=== PATIENT | female | born 1985 | race Caucasian/White ===

== ENCOUNTER → 2018-03-17 | Day surgery (SDC) | payer OTHER ==
[2018-03-15 10:49] VITALS: BMI 25.7
[~2018-03-17] MED LIST: LACTATED RINGERS 1,000 ML IV SCH; LIDOCAINE 1% 20 ML VIAL (10MG/ML) FOR IV START INTRADERMA ONE; PROPOFOL 10 MG/ML 20 ML VIAL IV ONE
[2018-03-17 13:06] VITALS: RESP 16; TEMP 98.9
--- NOTE | 2018-03-17 13:23 | P.PCN ---
Date of Procedure: 03/17/18 Procedure(s) Performed: BRIEF HISTORY: Patient is a 33-year-old pleasant female, scheduled for an elective colonoscopy as a part of screening for colonic neoplasia. She has strong family history of colon cancer diagnosed in her paternal grandfather at age 35, paternal grandmother at age 52 and paternal uncle at age 50. PROCEDURE PERFORMED: Colonoscopy with biopsy. PREOPERATIVE DIAGNOSIS: Screening for colon cancer/family history of colon cancer. IV sedation per Anesthesia. PROCEDURE: After informed consent was obtained, the patient, was brought into the endoscopy unit. IV sedation was administered by Anesthesia under continuous monitoring. Digital rectal examination was normal. Initially the Olympus CF- 160 flexible video colonoscope was then inserted in the rectum, gradually advanced into the cecum without any difficulty. Careful examination was performed as the scope was gradually being withdrawn. Ileocecal valve and the appendiceal orifice were visualized and appeared normal. Prep was excellent. Mucosa of the cecum, ascending colon, transverse colon, descending colon, sigmoid colon, and rectum appeared normal. In the distal rectum there was a 3- 4 mm small sessile polyp removed by cold biopsy. Retroflexion was performed in the rectum and no lesions were seen. The patient tolerated the procedure well. IMPRESSION: 4 mm sessile distal rectal polyp status post removal by cold biopsy Rest of the colon appeared normal RECOMMENDATIONS: Findings of this examination were discussed with the patient as well as a family. She was advised to follow with the biopsy results. She can have a repeat severance colonoscopy in 5 years because of the strong family history of colon cancer.
[2018-03-17 13:47] VITALS: BP 127/87; PULSE 105
== END ==
LOC: ORWHC2ENDO 12:31
PROVIDERS: ATTEND Internal Medicine Gastroenterology
DX: Z12.11 Encounter for screening for malignant neoplasm of colon (principal); D12.8 Benign neoplasm of rectum; Z80.0 Family history of malignant neoplasm of digestive organs; I10 Essential (primary) hypertension; Z79.3 Long term (current) use of hormonal contraceptives; Z79.899 Other long term (current) drug therapy; Z88.0 Allergy status to penicillin; Z91.041 Radiographic dye allergy status
CPT/HCPCS: 81025; 88305; 45380; J2704

== ENCOUNTER 2018-03-31 21:19 | Emergency (ER) | payer OTHER ==
[2018-03-31] MEDS ORDERED: diphenhydrAMINE 50 MG/ML 1 ML VIAL IVP STA (21:39)
[2018-03-31] MEDS ORDERED: KETOROLAC 30 MG/ML 1 ML VIAL IVP STA (21:39)
[2018-03-31] MEDS ORDERED: SODIUM CHLORIDE 0.9% 1,000 ML IV STA (21:39)
[2018-03-31] MEDS ORDERED: METOCLOPRAMIDE 5 MG/ML 2 ML VIAL IVP STA (21:39)
[2018-03-31] MEDS ORDERED: MORPHINE SULFATE 2 MG/ML SYRINGE IVP STA (21:55)
--- NOTE | 2018-03-31 22:52 | CT ---
EXAMINATION TYPE: CT brain wo con DATE OF EXAM: 03/31/2018 COMPARISON: None HISTORY: Migraine. CT DLP: 1102.4 mGycm. Automated Exposure Control for Dose Reduction was Utilized. TECHNIQUE: CT scan of the head is performed without contrast. FINDINGS: The ventricles of normal size. There is no mass effect nor midline shift. There is no sign of intracranial hemorrhage. The calvarium is intact. IMPRESSION: Negative CT scan of the brain.
--- NOTE | 2018-03-31 23:01 | ED ---
Headache HPI - General Chief Complaint: Headache Stated Complaint: Migraine Time Seen by Provider: 03/31/18 21:39 Mode of arrival: ambulatory Limitations: no limitations - History of Present Illness Initial Comments: 33-year-old female patient presents to the emergency department for evaluation of headache. Patient states the pain encompasses her entire head. States that the first time she experiences headache was 2 weeks ago after having a colonoscopy. States that the headache lasted for the 3 days and then improved. States that 2 days ago the headache started again. States that it does have a gradual onset and become severe. States she does get nauseous with this. She reports sensitivity to light and sound. She denies any blurred or double vision. Denies any numbness, tingling, or weakness to her extremities. She denies any head injury. Denies any history of headache or migraines. Patient denies any recent rash, fever, chills, shortness breath, chest pain, abdominal pain, vomiting, diarrhea, constipation, back pain, dizziness, hematuria, dysuria , urinary urgency, urinary frequency, or any other complaints. - Related Data Home Medications Medication Instructions Recorded Confirmed Dextroamphetamine/Amphetamine 20 mg PO DAILY 03/15/18 03/31/18 [Adderall] Levonorgestrel [Mirena] 03/15/18 Losartan Potassium [Cozaar] 25 mg PO DAILY 03/15/18 03/31/18 Previous Rx's Medication Instructions Recorded Butalb/APAP/Caff 50-325-40Mg 1 tab PO Q4H PRN #18 tablet 03/31/18 [Fioricet 50-325-40] Allergies Allergy/AdvReac Type Severity Reaction Status Date / Time amoxicillin Allergy Rash/Hives Verified 03/31/18 22:26 Iodine and Iodide Containing Allergy Rash/Hives Verified 03/31/18 22:26 Produc Review of Systems ROS Statement: Those systems with pertinent positive or pertinent negative responses have been documented in the HPI. ROS Other: All systems not noted in ROS Statement are negative. Past Medical History Past Medical History: Hypertension Additional Past Medical History / Comment(s): FAMILY HX COLON CA History of Any Multi-Drug Resistant Organisms: None Reported Past Surgical History: Section Additional Past Surgical History / Comment(s): RT BREAST SPOT REMOVED-BENIGN Past Anesthesia/Blood Transfusion Reactions: No Reported Reaction Past Psychological History: ADD/ADHD Smoking Status: Current every day smoker Past Alcohol Use History: Occasional Past Drug Use History: None Reported - Past Family History Mother Family Medical History: No Reported History General Exam Limitations: no limitations General appearance: alert, in no apparent distress, other (Social well-developed , well-nourished adult female patient in mild distress related to pain. Vital signs upon presentation are temperature 97.9F, pulse 120, respirations 20, blood pressure 135/86, pulse ox 99% on room air.) Eye exam: Present: normal appearance, PERRL, EOMI. Absent: scleral icterus, conjunctival injection, nystagmus, periorbital swelling ENT exam: Present: normal exam, normal oropharynx, mucous membranes moist Neck exam: Present: normal inspection. Absent: tenderness, meningismus, lymphadenopathy Respiratory exam: Present: normal lung sounds bilaterally. Absent: respiratory distress, wheezes, rales, rhonchi, stridor Cardiovascular Exam: Present: normal rhythm, tachycardia, normal heart sounds. Absent: systolic murmur, diastolic murmur, rubs, gallop, clicks GI/Abdominal exam: Present: soft, normal bowel sounds. Absent: distended, tenderness, guarding, rebound, rigid Neurological exam: Present: alert, oriented X3, CN II-XII intact Expanded Cranial nerves: EOM's Intact: Normal, Nystagmus: Normal Motor strength exam: RUE: 5, LUE: 5, RLE: 5, LLE: 5 Psychiatric exam: Present: normal affect, normal mood Skin exam: Present: warm, dry, intact, normal color. Absent: rash Course Vital Signs 03/31/18 03/31/18 21:34 23:48 Temperature 97.9 F 98.0 F Pulse Rate 120 H 98 Respiratory 20 16 Rate Blood Pressure 135/86 104/62 O2 Sat by Pulse 99 97 Oximetry Medical Decision Making - Medical Decision Making 33-year-old female patient presents to the emergency department today for evaluation of headache. Physical examination is relatively unremarkable. Patient is neurologically intact with no focal deficits. CT brain was performed and showed no acute intracranial abnormalities. Patient was given IV medications and IV fluids here in the emergency department. Upon reevaluation patient is feeling better. She'll be discharged home to follow-up with neurologist for further evaluation. She'll be given prescription for Fioricet. Return parameters were discussed in detail. She verbalizes understanding and agrees with this plan. - Radiology Data Radiology results: report reviewed, image reviewed CT brain without contrast was obtained. Report was reviewed in its entirety. Impression by Dr. Brown shows ventricles are of normal size. There is no mass effect or midline shift. So sign of intracranial hemorrhage. The calvarium is intact. Impression by Dr. Brown shows negative computed tomography scan of the brain. Disposition Clinical Impression: Migraine headache Disposition: HOME SELF-CARE Condition: Good Instructions: Migraine Headache (ED) Additional Instructions: Increase fluids. Use medication as directed. Follow up with neurologist for further evaluation and possible migraine headache. Return immediately for any new, worsening, or concerning symptoms. Prescriptions: Butalb/APAP/Caff 50-325-40Mg [Fioricet 50-325-40] 1 tab PO Q4H PRN #18 tablet PRN Reason: Headache Is patient prescribed a controlled substance at d/c from ED?: No Referrals: Terrence Momin MD [Primary Care Provider] - 1-2 days Comfort Veras MD [STAFF PHYSICIAN] - 1-2 days Time of Disposition: 23:29
[2018-03-31 23:53] VITALS: BP 104/62; PULSE 98; RESP 16; TEMP 98
== END 2018-03-31 23:54 | disposition home or self-care (01) ==
LOC: EC 21:19
DX: G43.909 Migraine, unspecified, not intractable, without status migrainosus (principal); R00.0 Tachycardia, unspecified; I10 Essential (primary) hypertension; F90.9 Attention-deficit hyperactivity disorder, unspecified type; F17.200 Nicotine dependence, unspecified, uncomplicated; Z79.899 Other long term (current) drug therapy; Z88.0 Allergy status to penicillin; Z91.048 Other nonmedicinal substance allergy status
CPT/HCPCS: 70450; 99283; 96374; 96375 ×2; 96361; J1200; J2765; J2270

== ENCOUNTER → 2018-11-02 | Outpatient (CLI) | payer OTHER ==
[2018-11-02 09:25] VITALS: BP 142/98; PULSE 124; RESP 18; TEMP 98.6; BMI 24.9
--- NOTE | 2018-11-02 10:11 | P.GSHP ---
History of Present Illness H&P Date: 11/02/18 Chief Complaint: lump in right breast The patient is a 33-year-old white female who noted a mass at in her right breast approximately 6 weeks ago. She states that initially was painful and the pain has subsided. She is not certain as to when her periods would be a she has a Mirena device implanted and does not have periods and has not had a period for 10 years. The patient has a strong family history of breast cancer with a paternal aunt having had bilateral mastectomies recently. She had recent radiographic evaluation at [facility] and was told that everything was okay. The patient continues to feel nodularity in the upper aspect of the right breast. Patient had bilateral mammogram and ultrasound at [facility] in September 2018. These films were reviewed with our radiologist here and no definite lesion was seen in either breast on either mammogram or ultrasound. January Risk analysis was run: 5 year breast cancer risk 0.8% compared with 0.3% for average 35-year-old Lifetime risk 16.4% compared was 12.6% for average 35-year-old Family history: 1. Maternal grandmother: breast cancer 2. 2 paternal aunts: Breast cancer 3. Maternal great-grandmother: Breast cancer 4. Paternal aunt: Colon cancer 5. Paternal grandfather: Colon cancer Hormonal History: menarche: 8 , breast fed: no, first at 19 no periods for 10 years, secondary to Mirena implanted BCP: 5 years hormones: none Surgical history: 1. Right breast lump removed 2. Medical History: 1. HTN Social history: Smoke: One pack per day for 15 years Alcohol: Weekends Drugs: Negative - Constitutional Constitutional: Denies chills, Denies fever - EENT Eyes: denies blurred vision, denies pain Ears: deny: decreased hearing, tinnitus Ears, nose, mouth and throat: Reports headache - Breasts Breasts: bilateral: as per HPI - Cardiovascular Cardiovascular: Reports high blood pressure - Respiratory Comment: smoker - Gastrointestinal Gastrointestinal: Denies abdominal pain, Denies diarrhea, Denies nausea, Denies vomiting - Genitourinary (Female) Genitourinary: Denies dysuria, Denies hematuria - Menstruation Menstruation: Reports as per HPI - Musculoskeletal Musculoskeletal: Denies myalgias - Integumentary Integumentary: Denies pruritus, Denies rash - Neurological Neurological: Denies numbness, Denies weakness - Endocrine Endocrine: Denies fatigue, Denies weight change - Hematologic/Lymphatic Comment: none - Allergic/Immunologic Allergic/Immunologic: Reports seasonal allergies Past Medical History Past Medical History: Hypertension Additional Past Medical History / Comment(s): FAMILY HX COLON CA History of Any Multi-Drug Resistant Organisms: None Reported Past Surgical History: Section Additional Past Surgical History / Comment(s): RT BREAST SPOT REMOVED-BENIGN Past Anesthesia/Blood Transfusion Reactions: No Reported Reaction Past Psychological History: ADD/ADHD Smoking Status: Current every day smoker Past Alcohol Use History: Occasional Additional Past Alcohol Use History / Comment(s): SMOKES 1 PPD FOR PAST 10 YEARS Past Drug Use History: None Reported - Past Family History Mother Family Medical History: No Reported History Medications and Allergies Home Medications Medication Instructions Recorded Confirmed Type Dextroamphetamine/Amphetamine 20 mg PO DAILY 03/15/18 11/02/18 History [Adderall] Levonorgestrel [Mirena] 1 insert VAGINAL DAILY 03/15/18 11/02/18 History Losartan Potassium [Cozaar] 25 mg PO DAILY 03/15/18 11/02/18 History Allergies Allergy/AdvReac Type Severity Reaction Status Date / Time amoxicillin Allergy Rash/Hives Verified 11/02/18 09:25 Iodine and Iodide Containing Allergy Rash/Hives Verified 11/02/18 09:25 Produc Surgical - Exam Vital Signs Temp Pulse Resp BP Pulse Ox 98.6 F 124 H 18 142/98 99 11/02/18 09:22 11/02/18 09:22 11/02/18 09:22 11/02/18 09:22 11/02/18 09:22 BMI 24.9 - General well developed, well nourished, no distress - Eyes normal ocular movement - ENT no hearing loss, no congestion - Neck no masses, trachea midline - Respiratory normal respiratory effort, clear to auscultation - Cardiovascular Rhythm: regular Heart Sounds: normal: S1, S2 - Abdomen Abdomen: soft, non tender, no guarding, no rigid, no rebound - Integumentary normal turgor, tattoos - Neurologic no disoriented, no combative - Musculoskeletal normal gait, normal posture - Psychiatric oriented to time, oriented to person, oriented to place, speech is normal, memory intact Breast exam: Right breast: Multi-positional exam area of increased nodularity at 12:00, fibrocystic changes May axilla: No adenopathy of concern Left breast: Multi-positional exam fibrocystic changes no dominant masses or notches of concern Left axilla: No adenopathy of concern Results Mammogram and ultrasound results reviewed with radiologist Assessment and Plan Assessment: Impression: 1. Hypertension 2. Family history of cancer 3. Family history of breast cancer 4. Fibrocystic breast changes 5. Palpable mass right breast at 12:00 6. Mammogram and ultrasound did not show any specific lesion in the breast 7. Increased risk of breast cancer noted on January model Plan: 1. I would recommend the patient had bilateral breast MRI secondary to dense breast and probable lesion in the right breast as well as strong family history of cancer 2. FNA of the area of concern in the right breast and surgical resection of the area following the FNA 3. Appointment with genetic counselor CC: Dr. Terrence Momin
--- NOTE | 2018-11-02 10:33 | P.PCN ---
Date of Procedure: 11/02/18 Preoperative Diagnosis: Nodularity 12:00 region of the right breast Postoperative Diagnosis: Same Procedure(s) Performed: Fine-needle aspiration of area of nodularity right breast Surgeon: Reva Mace Pathology: other (Nodule near the right breast at 12:00, breast tissue) Condition: stable Disposition: same day Indications for Procedure: Nodularity right breast at 12:00 Description of Procedure: The patient is a 33-year-old white female with an area of increased nodularity in the right breast at 12:00. This was not seen radiographically but is palpable. After discussion the patient wished to proceed with a fine-needle aspiration of the area. The area of the skin was prepped using alcohol. A 22- gauge needle on a 10 mL syringe was inserted into the area of concern. Using vacuum sessile action on the syringe multiple passes were obtained. The specimen was retrieved and process and sent to pathology. Patient tolerated the procedure in stable condition. She will follow-up in one week.
== END | disposition home or self-care (01) ==
LOC: WWCWWP 08:46
PROVIDERS: ATTEND Surgery
DX: N64.9 Disorder of breast, unspecified (principal)
CPT/HCPCS: 88173

== ENCOUNTER → 2018-11-13 | Outpatient (CLI) | payer OTHER ==
[2018-11-13 08:21] VITALS: BP 157/108; PULSE 120; RESP 18; TEMP 98.2; BMI 24.9
--- NOTE | 2018-11-13 08:41 | P.PN ---
Subjective Progress Note Date: 11/13/18 Leeanne is a 33-year-old white female who is status post FNA of an area of palpable change in the right breast at 12 o'clock position. Pathology reveals minimally cellular specimen consisting of mainly blood with rare sheets of clusters of bland ductal epithelial cells. This is overall nondiagnostic, fea tures suggest possibility of a fibroadenoma however the specimen is inadequate due to low cellularity to completely call this. The patient is scheduled for an MRI of both breasts next week. She has a strong family history of cancer and is going to see a genetic counselor in the near future. The patient has no complaints related to the FNA. She did develop some bruising at the site but this is resolving. Objective - Vital Signs Vital signs: Vital Signs Temp 98.2 F 11/13/18 08:16 Pulse 120 H 11/13/18 08:16 Resp 18 11/13/18 08:16 BP 157/108 11/13/18 08:16 Pulse Ox 99 11/13/18 08:16 Intake & Output 11/12/18 11/13/18 11/13/18 18:59 06:59 18:59 Weight 65.771 kg - Constitutional General appearance: Present: average body habitus - EENT Eyes: Present: EOMI ENT: Present: hearing grossly normal - Neck Neck: Present: normal ROM - Respiratory Respiratory: bilateral: CTA - Cardiovascular Rhythm: regular Heart sounds: normal: S1, S2 - Integumentary Integumentary Comment(s): Examination of the right breast reveals some ecchymosis at the site of the FNA No evidence of hematoma Persistent palpable abnormality at near the 12 o'clock position of the right breast no evidence of any infection Integumentary: Present: normal turgor Assessment and Plan Assessment: Impression: 1. Hypertension 2. Family history of cancer 3. Family history of breast cancer 4. Fibrocystic breast changes 5. Palpable mass right breast at 12:00/FNA benign 6. Mammogram and ultrasound did not show any specific lesions in the breast 7. Increased risk for breast cancer noted on January model Plan: 1. Bilateral breast MRI to be performed next week we will call the patient's with the results of this 2. Patient is considering genetic counseling 3. Patient wishes to have the palpable area of concern removed in the right breast The risk and benefits of the procedure were discussed with the patient this will be scheduled in the near future. Prior to this we will see results of the MRI. Cc: Dr. Terrence Momin
== END | disposition home or self-care (01) ==
LOC: WWCWWP 08:11
PROVIDERS: ATTEND Surgery
DX: Z53.9 Procedure and treatment not carried out, unspecified reason (principal)

== ENCOUNTER → 2018-11-15 | Outpatient (CLI) | payer OTHER ==
--- NOTE | 2018-11-16 08:40 | BMR ---
EXAMINATION TYPE: MR breast BILAT wo/w con DATE OF EXAM: 11/15/2018 COMPARISON: Outside bilateral breast mammogram September 22, 2018 and outside right breast targeted ultras ound same date. HISTORY: Unspecified lump in rt breast, hx of cyst removed near nipple CONTRAST: Multiplanar, multisequence images of the breasts were acquired utilizing 7 mL intravenous Gadavist ga dolinium contrast. TECHNIQUE: A series of fat and water weighted images in the long and short axis views of both breasts are obtained in conjunction with dynamic contrast MRI with subtraction technique. Three-dimensional and additional postprocessing imaging is created on independent workstation and reviewed during offi cial interpretation of this study. FINDINGS: Fairly extremely dense fibroglandular tissue throughout both breasts is redemonstrated. T2- weighted images show several simple appearing thin-walled small cysts bilaterally. There is some duct al ectasia bilaterally subareolar region. Dynamic postcontrast images show fairly moderate to marked symmetric background enhancement making evaluation suboptimal. Review of patient's screening she does not reveal patient's current last normal menstrual period so it is uncertain if the exam was perform ed in the appropriate time interval making evaluation suboptimal. Areas of glandular enhancement show benign gradual uptake on dynamic postcontrast images bilaterally with slightly more prominent area u pper-outer aspect right breast corresponding to level of palpable abnormality, this is fairly diffuse in appearance versus focal was slightly more prominent glandular tissue noted at this level on mammo gram versus other quadrant. No suspicious skin thickening is seen bilaterally. No pathologic enhancement or suspicious enhancing masses are clearly present. Chest wall is intact bilaterally. No suspicious axillary or internal mamm iain adenopathy. IMPRESSION: No convincing MRI evidence for invasive malignancy in either breast. Suboptimal study not ed. Hormonal changes suspected. BI-RADS 2 benign findings Recommendation: Manage palpable on clinical basis. If symptoms persist consider repeat targeted ultra sound.
== END | disposition home or self-care (01) ==
LOC: RADMRIMAIN 19:09
PROVIDERS: ATTEND Surgery
DX: N63.0 Unspecified lump in unspecified breast (principal)
CPT/HCPCS: 77049; C8937; A9585

== ENCOUNTER → 2018-12-28 | Outpatient (CLI) | payer OTHER ==
[2018-12-28 09:30] VITALS: BP 143/98; PULSE 115; RESP 16; TEMP 98.2; BMI 25.7
--- NOTE | 2018-12-28 10:11 | P.PN ---
Subjective Progress Note Date: 12/28/18 The patient is a 33-year-old white female who noted a mass at in her right breast approximately 8 weeks ago. She states that initially was painful and the pain has subsided. She is not certain as to when her periods would be a she has a Mirena device implanted and does not have periods and has not had a period for 10 years. The patient has a strong family history of breast cancer with a paternal aunt having had bilateral mastectomies recently. She had recent radiographic evaluation at [facility] and was told that everything was okay. The patient continues to feel nodularity in the upper aspect of the right breast. Patient had bilateral mammogram and ultrasound at [facility] in September 2018. These films were reviewed with our radiologist here and no definite lesion was seen in either breast on either mammogram or ultrasound. Patient had a bilateral MRI performed on [id number] this was a suboptimal study but no convincing evidence of malignancy in either breast was identified. Additionally she had an FNA performed of the area of nodularity and [id number]. This was benign clusters of plan ductal cells. Overall this was nondiagnostic however features suggestive of fibroadenoma. Patient states despite has not decreased in size. It is painful to touch. January Risk analysis was run: 5 year breast cancer risk 0.8% compared with 0.3% for average 35-year-old Lifetime risk 16.4% compared was 12.6% for average 35-year-old Family history: 1. Maternal grandmother: breast cancer 2. 2 paternal aunts: Breast cancer 3. Maternal great-grandmother: Breast cancer 4. Paternal aunt: Colon cancer 5. Paternal grandfather: Colon cancer Hormonal History: menarche: 8 , breast fed: no, first at 19 no periods for 10 years, secondary to Mirena implanted BCP: 5 years hormones: none Surgical history: 1. Right breast lump removed 2. Medical History: 1. HTN Social history: Smoke: One pack per day for 15 years Alcohol: Weekends Drugs: Negative - Constitutional Constitutional: Denies chills, Denies fever - EENT Eyes: denies blurred vision, denies pain Ears: deny: decreased hearing, tinnitus Ears, nose, mouth and throat: Reports headache - Breasts Breasts: bilateral: as per HPI - Cardiovascular Cardiovascular: Reports high blood pressure - Respiratory Comment: smoker - Gastrointestinal Gastrointestinal: Denies abdominal pain, Denies diarrhea, Denies nausea, Denies vomiting - Genitourinary (Female) Genitourinary: Denies dysuria, Denies hematuria - Menstruation Menstruation: Reports as per HPI - Musculoskeletal Musculoskeletal: Denies myalgias - Integumentary Integumentary: Denies pruritus, Denies rash - Neurological Neurological: Denies numbness, Denies weakness - Endocrine Endocrine: Denies fatigue, Denies weight change - Hematologic/Lymphatic Comment: none - Allergic/Immunologic Allergic/Immunologic: Reports seasonal allergies Past Medical History Past Medical History: Hypertension Additional Past Medical History / Comment(s): FAMILY HX COLON CA History of Any Multi-Drug Resistant Organisms: None Reported Past Surgical History: Section Additional Past Surgical History / Comment(s): RT BREAST SPOT REMOVED-BENIGN Past Anesthesia/Blood Transfusion Reactions: No Reported Reaction Past Psychological History: ADD/ADHD Smoking Status: Current every day smoker Past Alcohol Use History: Occasional Additional Past Alcohol Use History / Comment(s): SMOKES 1 PPD FOR PAST 10 YEARS Past Drug Use History: None Reported Objective - Vital Signs Vital signs: Vital Signs Temp 98.2 F 12/28/18 09:27 Pulse 115 H 12/28/18 09:27 Resp 16 12/28/18 09:27 BP 143/98 12/28/18 09:27 Pulse Ox 100 12/28/18 09:27 Intake & Output 12/27/18 12/28/18 12/28/18 18:59 06:59 18:59 Weight 68.039 kg - Exam BMI 25.7 - Constitutional General appearance: Present: average body habitus - EENT Eyes: Present: EOMI ENT: Present: hearing grossly normal - Neck Neck: Present: normal ROM - Respiratory Respiratory: bilateral: CTA - Cardiovascular Rhythm: regular Heart sounds: normal: S1, S2 - Gastrointestinal General gastrointestinal: Present: soft - Integumentary Integumentary: Present: normal turgor - Musculoskeletal Musculoskeletal: Present: gait normal - Psychiatric Psychiatric: Present: A&O x's 3, appropriate affect, intact judgment & insight - Additional findings Additional findings: Breast examination: Right breast: Multiple positional exam increased nodularity 12:00 otherwise no dominant masses or nodules of concern, fibrocystic changes Axilla: No adenopathy of concern Left breast: Multiple positional exam fibrocystic changes Left axilla: No adenopathy of concern Breasts size 34 D grade 2 ptosis Assessment and Plan Assessment: Impression: 1. Probable nodule right breast FNA nondiagnostic 2. Family history of breast cancer 3. Hypertension 4. Family history of cancer 5. Mammogram and ultrasound did not show any specific lesions in the breast medicated MRI 5. Increased risk for breast cancer noted on January model Plan: 1. Patient is scheduled to meet with genetic counselor she wishes to have the surgery done prior to any results from genetic counseling and she states that anything that shows she would contemplate for probably a year prior to any intervention 2. Excisional biopsy of palpable abnormality right breast most likely via a crescent mastopexy patient understands that her breasts will be asymmetric after this procedure and she may opt for bilateral symmetry procedure in the future 3. Medical management of medical conditions CC: DR. Sendy Momin
== END | disposition home or self-care (01) ==
LOC: WWCWWP 09:20
PROVIDERS: ATTEND Surgery
DX: Z53.9 Procedure and treatment not carried out, unspecified reason (principal)

== ENCOUNTER 2019-01-02 07:20 | Day surgery (SDC) | payer OTHER ==
[2018-12-27 15:26] VITALS: BMI 25.2
[~2019-01-02 07:20] MED LIST changes: +DEXAMETHASONE SOD PHOSPHATE 10 MG/ML 1 ML VIAL IV ONE; +HEPARIN SODIUM,PORCINE 5,000 UNIT/ML 1 ML VIAL SQ ONE; -LIDOCAINE 1% 20 ML VIAL (10MG/ML) FOR IV START INTRADERMA ONE; +MIDAZOLAM 2 MG/2 ML VIAL IV PRN; +ONDANSETRON 4 MG/2 ML VIAL IVP ONE; -PROPOFOL 10 MG/ML 20 ML VIAL IV ONE; +SCOPOLAMINE 1.5MG/72HR PATCH TRANSDERM ONE
[2019-01-02] MEDS ORDERED: HYDROmorphone (PF) 1 MG/ML ONE (08:16)
[2019-01-02] MEDS ORDERED: LIDOCAINE 1% INJ 10MG/ML (20 ML MDV) ONE (08:16)
[2019-01-02] MEDS ORDERED: PROPOFOL 10 MG/ML 20 ML VIAL IV ONE (08:16)
[2019-01-02] MEDS ORDERED: fentaNYL (PF) 50 MCG/ML 2 ML AMP ONE (08:16)
[2019-01-02] MEDS ORDERED: SUCCINYLCHOLINE CHLORIDE 100 MG/5 ML SYR IV ONE (08:16)
[2019-01-02] MEDS ORDERED: MIDAZOLAM 2 MG/2 ML VIAL ONE (08:16)
[2019-01-02] MEDS ORDERED: HEPARIN SODIUM,PORCINE 5,000 UNIT/ML 1 ML VIAL SQ ONE (08:28)
[2019-01-02] MEDS ORDERED: LIDOCAINE (PF) 10 MG/ML 2 ML VIAL SQ ONE ×2 (08:38)
--- NOTE | 2019-01-02 09:40 | P.OP ---
Date of Procedure: 01/02/19 Preoperative Diagnosis: Palpable abnormality right breast, FNA performed nondiagnostic suggestive of fibroadenoma Postoperative Diagnosis: Same Procedure(s) Performed: Right breast excisional biopsy, tissue transfer with onco-plastic closure Anesthesia: CHRISTIAN Surgeon: Reva Mace Estimated Blood Loss (ml): 5 IV fluids (ml): 700 Pathology: other (Right breast tissue) Condition: stable Disposition: same day Indications for Procedure: The patient is a 34-year-old white female who presents with a very strong family history of breast cancer including a palpable mass in her right breast. An FNA was performed which was nondiagnostic. The patient wished excision as this was symptomatic for her. Operative Findings: Dense breast tissue Description of Procedure: The patient was taken to the operating room and following induction of anesthesia the right breast was prepped and draped in a sterile fashion. A crescent mastopexy was performed. The superior portion of the incision was approximately 1 cm from the area of the aerola.. A periareolar incision was made which encompassed prior periareolar incision. Dissection between the skin and the breast tissue was performed in the subcutaneous fatty tissue proximal to the area of the palpable abnormality. A wedge resection which included the palpable abnormality was performed. The specimen was 7 cm long and 6 cm wide. Following this the pillars on each side laterally were mobilized. Mobilization was approximately 8 cm long by 4 cm wide and this was performed along the area of the pectoralis muscle as well as in the tissue plane between the skin and the breast tissue in the subcutaneous tissue. Likewise the lateral tissue was dissected again 8 cm long by 4 cm wide width was dissected in both the pectoralis major muscle area as well as the tissue between the skin and the breast. The total tissue mobilized was approximately 64 cm. Titanium clips were used to kirsten the initial cavity. The wound was well irrigated. The 2 pillars of tissue were brought together and secured in place using a Vicryl suture. After we were assured that hemostasis was attained the periareolar incision was closed using a 4-0 Vicryl suture followed by a 4-0 Ethibond. 10 mL of 1% lidocaine was used to anesthetize the area. The patient tolerated the procedure in stable condition. All instrument and sponge counts were correct at the end of the case.
--- NOTE | 2019-01-02 09:43 | P.DS ---
Providers Attending physician: Reva Mace Primary care physician: Terrence Momin Plan - Discharge Summary Discharge Rx Participant: Yes New Discharge Prescriptions: No Action Dextroamphetamine/Amphetamine [Adderall] 20 mg PO QAM Levonorgestrel [Mirena] 1 insert VAGINAL ONCE Losartan-Hctz 50-12.5 mg [Hyzaar 50-12.5] 1 tab PO QAM Discharge Medication List Dextroamphetamine/Amphetamine [Adderall] 20 mg PO QAM 03/15/18 [History] Levonorgestrel [Mirena] 1 insert VAGINAL ONCE 03/15/18 [History] Losartan-Hctz 50-12.5 mg [Hyzaar 50-12.5] 1 tab PO QAM 12/27/18 [History] Follow up Appointment(s)/Referral(s): Reva Mace MD [STAFF PHYSICIAN] - 1 Week Activity/Diet/Wound Care/Special Instructions: Do not drive today, do not drive if taking narcotic pain medication Wear bra at all times Patient may shower after 48 hours Discharge Disposition: HOME SELF-CARE
[2019-01-02 09:56] VITALS: TEMP 97.2
[2019-01-02] MEDS: HYDROmorphone 0.5 MG/0.5 ML SYRINGE IVP PRN ×2 (10:04→10:15)
[2019-01-02] MEDS ORDERED: LACTATED RINGERS 1,000 ML IV ONE (10:22)
[2019-01-02 10:35] VITALS: RESP 18
[2019-01-02] MEDS ORDERED: HYDROcodone/APAP 5-325MG 1 EACH TAB PO ONE (10:55)
[2019-01-02 11:25] VITALS: BP 128/87; PULSE 101
== END 2019-01-02 11:42 | disposition home or self-care (01) ==
LOC: OR 07:20
PROVIDERS: ATTEND Surgery
DX: N60.11 Diffuse cystic mastopathy of right breast (principal); Z80.3 Family history of malignant neoplasm of breast; Z80.0 Family history of malignant neoplasm of digestive organs; F17.210 Nicotine dependence, cigarettes, uncomplicated; I10 Essential (primary) hypertension; Z88.1 Allergy status to other antibiotic agents; Z88.3 Allergy status to other anti-infective agents; Z79.899 Other long term (current) drug therapy
CPT/HCPCS: 81025; 88307; 19301; J2250; J2001 ×2; J1644; J1100; J2405; J3010; J1170 ×2; J0330; J2704

== ENCOUNTER → 2019-01-10 | Outpatient (CLI) | payer OTHER ==
[2019-01-10 12:30] VITALS: BP 122/87; PULSE 123; RESP 18; TEMP 97.8; BMI 25.7
--- NOTE | 2019-01-10 12:49 | P.PN ---
Subjective Progress Note Date: 01/10/19 Principal diagnosis: Leeanne is a 34-year-old white female with a strong family history of breast cancer. She had a palpable lump in her right breast and an FNA was performed of this area which was nondiagnostic. The patient subsequently underwent an excisional biopsy of palpable abnormality in the operating room on . Pathology revealed fibrocystic changes including fibrosis, cysts, sclerosing adenosis, and fibroadenomatoid hyperplasia and columnar metaplasia with columnar cell change. Postoperatively the patient has noted some mild erythema at 2 sites along the incision. This is noted between some Steri-Strips. She has not had any fever or chills. Otherwise she has no complaints related to the procedure. Physical exam: Lungs: Clear Heart: Regular rate and rhythm Incision: Clean and dry mild erythema at 2 sites between Steri-Strips Patient has asymmetry of the breast with grade 3 ptosis on the left and grade 1 ptosis on the right Impression: 1. Benign open breast biopsy 2. Strong family history of breast cancer 3. Mild erythema at incision site/patient is a smoker Plan: 1. Patient is going to see a genetic counselor 2. Cliindamycin for 5 days 3. Follow-up in a week and a half Cc: Dr. Terrence Momin Objective - Vital Signs Vital signs: Vital Signs Temp 97.8 F 01/10/19 12:26 Pulse 123 H 01/10/19 12:26 Resp 18 01/10/19 12:26 BP 122/87 01/10/19 12:26 Pulse Ox 99 01/10/19 12:26 Intake & Output 01/09/19 01/10/19 01/10/19 18:59 06:59 18:59 Weight 68.039 kg
== END | disposition home or self-care (01) ==
LOC: WWCWWP 12:19
PROVIDERS: ATTEND Surgery
DX: Z53.9 Procedure and treatment not carried out, unspecified reason (principal)

== ENCOUNTER → 2023-03-12 | Outpatient (CLI) | payer OTHER ==
--- NOTE | 2023-03-12 09:17 | MR ---
EXAMINATION TYPE: MR lumbar spine wo con DATE OF EXAM: 03/12/2023 8:52 AM CLINICAL INDICATION:Female, 38 years old with history of M54.51 VERTEBROGENIC LOW BACK PAIN; PHH, Low er back pain, LLE radiculopathy. COMPARISON: None TECHNIQUE: Multi planar, multi sequence imaging was performed utilizing: T1-weighted, T2-weighted, a nd turbo inversion recovery imaging of the lumbar spine. IV Contrast: cc . (None if empty) FINDINGS: Alignment: The lumbar vertebral bodies have preserved heights and alignment. Cord: The conus medullaris and the distal spinal cord appear unremarkable with regards to their signa l intensity and morphology. Bones/Discs: Minimal disc degeneration changes worse at L4-L5 with osteophytes and disc desiccation a nd facet joint arthropathy. T12-L1: No evidence of significant spinal canal stenosis or neural foraminal stenosis. L1-L2: Central disc right central disc protrusion without significant spinal canal stenosis. The neur al foramen are patent. L2-L3: No evidence of significant spinal canal stenosis or neural foraminal stenosis. L3-L4: No evidence of significant spinal canal stenosis or neural foraminal stenosis. L4-L5: Central disc protrusion and left central disc protrusion which closely approximates the left f orming nerves. Series 601 image 9 L5-S1: The disc is rounded posterior morphology without significant spinal canal stenosis. Facet join t arthropathy with mild bilateral neural foraminal stenosis. No significant spinal canal or neural foraminal stenosis in the remainder of the visualized levels. Other findings: None. IMPRESSION: 1. Left central disc protrusion at L4-L5 which closely approximates the left forming nerves. There i s mild spinal canal stenosis. 2. L1-L2 right central disc protrusion without significant spinal canal stenosis. 3. No evidence for significant neural foraminal stenosis.
== END | disposition home or self-care (01) ==
LOC: RADMRIMAIN 07:54
PROVIDERS: ATTEND Physical Medicine & Rehabilitation
DX: M48.061 Spinal stenosis, lumbar region without neurogenic claudication (principal); M51.26 Other intervertebral disc displacement, lumbar region; M47.27 Other spondylosis with radiculopathy, lumbosacral region; M51.17 Intervertebral disc disorders with radiculopathy, lumbosacral region
CPT/HCPCS: 72148

== ENCOUNTER → 2024-03-15 | Outpatient (CLI) | payer OTHER ==
--- NOTE | 2024-03-15 19:22 | MR ---
INDICATION: Patient age:Female; 39 years old; Reason for study: M54.17 RADICULOPATHY, LUMBOSACRAL REGION; PHH. COMPARISONS: MR lumbar spine 03/12/2023. TECHNIQUE: Multi planar, multi sequence imaging was performed utilizing: T1-weighted, T2-weighted, a nd turbo inversion recovery imaging of the lumbar spine. The patient was not given contrast. FINDINGS: The lumbar vertebral bodies do have preserved heights and alignment. The conus medullaris and the distal spinal cord do appear unremarkable with regards to their signal intensity and morpholo gy. L1-L2: Mild disc desiccation with Schmorl's node involving the inferior endplate of the L1 vertebral body. Right paracentral small disc protrusion redemonstrated without significant effacement of the an terior thecal sac. No surrounding STIR signal. No neural foraminal stenosis. L2-L3: No significant disc pathology is identified. The spinal canal and neural foramen are patent. L3-L4: No significant disc pathology is identified. The spinal canal and neural foramen are patent. L4-L5: Disc desiccation. Redemonstrated of center disc protrusion extending into the left paracentra l region which abuts the traversing left nerve roots. This results in mild central canal stenosis. Th e right neural foramen is patent. Minimal left neuroforaminal stenosis. L5-S1: No significant disc pathology is identified. The spinal canal and neural foramen are patent Other significant findings: None. IMPRESSION: 1. Overall stable examination with L4-L5 disc protrusion resulting in mild central canal stenosis wi th abutment of the traversing nerve roots on the left. 2. Stable L1-L2 right paracentral disc protrusion without significant spinal canal stenosis. [facility], , 03/15/2024 7:19 PM
== END | disposition home or self-care (01) ==
LOC: RADMRIMAIN 16:12
PROVIDERS: ATTEND Physical Medicine & Rehabilitation
DX: M51.17 Intervertebral disc disorders with radiculopathy, lumbosacral region (principal); M47.27 Other spondylosis with radiculopathy, lumbosacral region; M99.73 Connective tissue and disc stenosis of intervertebral foramina of lumbar region
CPT/HCPCS: 72148

== ENCOUNTER 2024-04-18 16:19 | Emergency (ER) | payer OTHER ==
[2024-04-18 16:32] VITALS: RESP 20; TEMP 97.7
[2024-04-18 17:26] LABS: ALT 18 U/L (4-34); AST 25 U/L (14-36); African American GFR (CKD) >90 (>60 ml/min/1.73 sqM); Albumin 4.5 g/dL (3.5-5.0); Alkaline Phosphatase 79 U/L (38-126); Anion Gap 16 mmol/L; Blood Urea Nitrogen 5 mg/dL (7-17); Calcium 10.2 mg/dL (8.4-10.2); Carbon Dioxide 22 mmol/L (22-30); Chloride 98 mmol/L (98-107); Glucose 104 mg/dL (74-99); Non-African American GFR(CKD) >90 (>60 ml/min/1.73 sqM); Potassium 4.3 mmol/L (3.5-5.1); Sodium 136 mmol/L (137-145); Total Bilirubin 1.1 mg/dL (0.2-1.3); Total Protein 7.9 g/dL (6.3-8.2)
[2024-04-18] MEDS: DEXAMETHASONE SOD PHOSPHATE 10 MG/ML 1 ML VIAL IVP STA (17:26)
[2024-04-18] MEDS: SODIUM CHLORIDE 0.9% 1,000 ML IV STA (17:27)
[2024-04-18] MEDS: ONDANSETRON 4 MG/2 ML VIAL IVP STA (17:27)
[2024-04-18] MEDS: diphenhydrAMINE 50 MG/ML 1 ML VIAL IVP STA (17:27)
[2024-04-18 17:34] LABS: Basophils % (A) 0 %; Eosinophils % (A) 0 %; Lymphocytes # (A) 0.7 k/uL (1.0-4.8); Lymphocytes % (A) 7 %; MCH 33.9 pg (25.0-35.0); MCHC 34.3 g/dL (31.0-37.0); MCV 98.9 fL (80.0-100.0); Mean Platelet Volume 8.6; Monocytes # (A) 0.3 k/uL (0-1.0); Monocytes % (A) 3 %; Neutrophils # (A) 8.6 k/uL (1.3-7.7); Neutrophils % (A) 89 %; Platelet Count 184 k/uL (150-450); RBC 5.86 m/uL (3.80-5.40); RDW 13.9 % (11.5-15.5); WBC 9.7 k/uL (3.8-10.6)
--- NOTE | 2024-04-18 17:49 | ED ---
General Adult HPI - General Chief complaint: Headache Stated complaint: head hurts Time Seen by Provider: 04/18/24 16:50 Source: patient, family, RN notes reviewed Mode of arrival: wheelchair Limitations: no limitations - History of Present Illness Initial comments: 39-year-old female with history of migraines presenting for headache x 5 hours. States earlier today she was eating a chip and started to feel pain in her head. States since then she has had pain in the back of her head and neck with associated nausea and vomiting. States she is sensitive to light as well. No head injury or trauma. Denies chest pain or shortness of breath. States pain feels better if she presses on her neck. She has tried taking ibuprofen and Aleve with little improvement. History of hypertension, no other health conditions. Denies blood thinners. - Related Data Home Medications Medication Instructions Recorded Confirmed Dextroamphetamine/Amphetamine 20 mg PO QAM 03/15/18 01/10/19 [Adderall] Levonorgestrel [Mirena] 1 insert VAGINAL ONCE 03/15/18 01/10/19 Losartan-Hctz 50-12.5 mg [Hyzaar 1 tab PO QAM 12/27/18 01/10/19 50-12.5] Allergies Allergy/AdvReac Type Severity Reaction Status Date / Time amoxicillin Allergy Rash/Hives Verified 01/10/19 12:25 Iodine and Iodide Containing Allergy Rash/Hives Verified 01/10/19 12:25 Produc Review of Systems ROS Statement: Those systems with pertinent positive or pertinent negative responses have been documented in the HPI. ROS Other: All systems not noted in ROS Statement are negative. Past Medical History Past Medical History: Hypertension, Pneumonia Additional Past Medical History / Comment(s): Hx Pneumonia many times, none in last 1 yr. History of Any Multi-Drug Resistant Organisms: None Reported Past Surgical History: Breast Surgery, Section Additional Past Surgical History / Comment(s): RT BREAST BIOPSY. Past Anesthesia/Blood Transfusion Reactions: No Reported Reaction Past Psychological History: ADD/ADHD Past Alcohol Use History: Occasional Past Drug Use History: None Reported - Past Family History Mother Family Medical History: No Reported History General Exam Limitations: no limitations General appearance: alert, in no apparent distress Head exam: Present: atraumatic, normocephalic, normal inspection Eye exam: Present: normal appearance, PERRL, EOMI. Absent: scleral icterus, conjunctival injection, periorbital swelling ENT exam: Present: normal exam, mucous membranes moist Neck exam: Present: normal inspection. Absent: tenderness, meningismus, lym phadenopathy Respiratory exam: Present: normal lung sounds bilaterally. Absent: respiratory distress, wheezes, rales, rhonchi, stridor Cardiovascular Exam: Present: regular rate, normal rhythm, normal heart sounds. Absent: systolic murmur, diastolic murmur, rubs, gallop, clicks Neurological exam: Present: alert, oriented X3, CN II-XII intact Psychiatric exam: Present: normal affect, normal mood Skin exam: Present: warm, dry, intact, normal color. Absent: rash Course Vital Signs 04/18/24 04/18/24 16:30 20:59 Temperature 97.7 F Pulse Rate 81 80 Respiratory 20 20 Rate Blood Pressure 135/86 131/80 O2 Sat by Pulse 98 99 Oximetry Medical Decision Making - Medical Decision Making Was pt. sent in by a medical professional or institution (, PA, PHARMACY BENEFITS COORDINATOR, urgent care, hospital, or half-way...) When possible be specific @ -No Did you speak to anyone other than the patient for history (EMS, parent, family, police, friend...)? What history was obtained from this source @ -No Did you review nursing and triage notes (agree or disagree)? Why? @ -I reviewed and agree with nursing and triage notes Were old charts reviewed (outside hosp., previous admission, EMS record, old EKG, old radiological studies, urgent care reports/EKG's, half-way records)? Report findings @ -No old charts were reviewed Differential Diagnosis (chest pain, altered mental status, abdominal pain women, abdominal pain men, vaginal bleeding, weakness, fever, dyspnea, syncope, headache, dizziness, GI bleed, back pain, seizure, CVA, palpatations, mental health, musculoskeletal)? @ -Differential Headache: Migraine, tension, cluster, carbon monoxide, central venous thrombosis, pension karma temporal arteritis, acute closure glaucoma, intercranial hemorrhage, mast oiditis, sinusitis, head injury, this is not meant to be an all-inclusive list. EKG interpreted by me (3pts min.). @ -None X-rays interpreted by me (1pt min.). @ -None done CT interpreted by me (1pt min.). @ -CT brain and C-spine reveals no acute intracranial process U/S interpreted by me (1pt. min.). @ -None done What testing was considered but not performed or refused? (CT, X-rays, U/S, labs)? Why? @ -None What meds were considered but not given or refused? Why? @ -None Did you discuss the management of the patient with other professionals (professionals i.e. DrJacob, PA, PHARMACY BENEFITS COORDINATOR, lab, RT, psych nurse, social work msw, piling cutter, teacher, special technical operations officer, bottle caser)? Give summary @ -No Was smoking cessation discussed for >3mins.? @ -No Was critical care preformed (if so, how long)? @ -No Were there social determinants of health that impacted care today? How? (Homelessness, low income, unemployed, alcoholism, drug addiction, transportation, low edu. Level, literacy, decrease access to med. care, retirement, rehab)? @ -No Was there de-escalation of care discussed even if they declined (Discuss DNR or withdrawal of care, Hospice)? DNR status @ -No What co-morbidities impacted this encounter? (DM, HTN, Smoking, COPD, CAD, Cancer, CVA, ARF, Chemo, Hep., AIDS, mental health diagnosis, sleep apnea, mo rbid obesity)? @ -None Was patient admitted / discharged? Hospital course, mention meds given and ro sleetmute, prescriptions, significant lab abnormalities, going to OR and other pertinent info. @ -Discharged. This is a 39-year-old female with history of migraines presenting to the ER with chief complaint of headache. Vital signs within acceptable limits. Neuro examination is unremarkable, no focal deficits. Patient is provided with IV fluids and analgesics. Lab work remarkable for elevated hemoglobin. CT brain and C-spine negative for intracranial process. Upon reevaluation, patient reports improvement of symptoms and feels stable for discharge. Appropriate return precautions and follow-up care discussed. Case was discussed with my ED attending Dr. Mclaughlin Undiagnosed new problem with uncertain prognosis? @ -No Drug Therapy requiring intensive monitoring for toxicity (Heparin, Nitro, I nsulin, Cardizem)? @ -No Were any procedures done? @ -No Diagnosis/symptom? @ -Headache Acute, or Chronic, or Acute on Chronic? @ -Acute Uncomplicated (without systemic symptoms) or Complicated (systemic symptoms)? @ -Uncomplicated Side effects of treatment? @ -No Exacerbation, Progression, or Severe Exacerbation? @ -No Poses a threat to life or bodily function? How? (Chest pain, USA, NV, pneumonia, PE, COPD, DKA, ARF, appy, cholecystitis, CVA, Diverticulitis, Homicidal, Suicidal, threat to staff... and all critical care pts) @ -No - Lab Data Result diagrams: 04/18/24 17:05 04/18/24 17:05 Lab Results 04/18/24 04/18/24 04/18/24 Range/Units 17:05 17:05 20:00 WBC 9.7 (3.8-10.6) k/uL RBC 5.86 H (3.80-5.40) m/uL Hgb 19.9 H* (11.4-16.0) gm/dL Hct 58.0 H* (34.0-46.0) % MCV 98.9 (80.0-100.0) fL MCH 33.9 (25.0-35.0) pg MCHC 34.3 (31.0-37.0) g/dL RDW 13.9 (11.5-15.5) % Plt Count 184 (150-450) k/uL MPV 8.6 Neutrophils % 89 % Lymphocytes % 7 % Monocytes % 3 % Eosinophils % 0 % Basophils % 0 % Neutrophils # 8.6 H (1.3-7.7) k/uL Lymphocytes # 0.7 L (1.0-4.8) k/uL Monocytes # 0.3 (0-1.0) k/uL Eosinophils # 0.0 (0-0.7) k/uL Basophils # 0.0 (0-0.2) k/uL Sodium 136 L (137-145) mmol/L Potassium 4.3 (3.5-5.1) mmol/L Chloride 98 (98-107) mmol/L Carbon Dioxide 22 (22-30) mmol/L Anion Gap 16 mmol/L BUN 5 L (7-17) mg/dL Creatinine 0.73 (0.52-1.04) mg/dL Est GFR (CKD-EPI)AfAm >90 (>60 ml/min/1.73 sqM) Est GFR (CKD-EPI)NonAf >90 (>60 ml/min/1.73 sqM) Glucose 104 H (74-99) mg/dL Calcium 10.2 (8.4-10.2) mg/dL Total Bilirubin 1.1 (0.2-1.3) mg/dL AST 25 (14-36) U/L ALT 18 (4-34) U/L Alkaline Phosphatase 79 (38-126) U/L Total Protein 7.9 (6.3-8.2) g/dL Albumin 4.5 (3.5-5.0) g/dL Urine HCG, Qual Not Detected (Not Detectd) Disposition Clinical Impression: Headache Disposition: HOME SELF-CARE Condition: Stable Instructions (If sedation given, give patient instructions): Acute Headache (ED) Additional Instructions: Please return to the Emergency Department if symptoms worsen or any other concerns. Is patient prescribed a controlled substance at d/c from ED?: No Referrals: Terrence Momin MD [Primary Care Provider] - 1-2 days Time of Disposition: 10:30
--- NOTE | 2024-04-18 17:57 | CT ---
EXAMINATION TYPE: CT brain mayela wo con DATE OF EXAM: 04/18/2024 COMPARISON: CT brain 2019 HISTORY: headache and neck pain. CT DLP: 1309 mGycm. Automated Exposure Control for Dose Reduction was Utilized. TECHNIQUE: CT scan of the head and cervical spine are performed without contrast. FINDINGS: There is no acute intracranial hemorrhage, mass effect, or midline shift identified. The ventricles and sulci are within normal limits in size. Jara-white matter differentiation is maintain ed. The globes are intact and the visualized sinuses are clear. Nasal septum is deviated to left of m idline. Cervical spine is visualized in its entirety from C1 through upper thoracic levels and demonstrates s atisfactory alignment without evidence of acute fracture or dislocation. Prevertebral soft tissue ap pears within normal limits. The C1-C2 articulation is unremarkable. Vertebral body and disc space h eights are within normal limits. Spinal canal is preserved. Lung apices are clear without pneumothora x. Thyroid gland is normal in size. IMPRESSION: 1. There is no acute fracture or dislocation evident in the cervical spine. 2. No acute intracranial hemorrhage or midline shift is seen. [facility], , 04/18/2024 5:55 PM
[2024-04-18 17:58] LABS: HGB 19.9 gm/dL (11.4-16.0)
[2024-04-18] MEDS: KETOROLAC 15 MG/ML 1 ML VIAL IVP STA (19:07)
[2024-04-18] MEDS: METOCLOPRAMIDE 5 MG/ML 2 ML VIAL IVP STA (19:07)
[2024-04-18 21:00] VITALS: BP 131/80; PULSE 80
== END 2024-04-18 21:15 | disposition home or self-care (01) ==
LOC: EC 16:19
DX: R51.9 Headache, unspecified (principal); R73.09 Other abnormal glucose; Z88.0 Allergy status to penicillin; Z91.041 Radiographic dye allergy status
CPT/HCPCS: 36415; 80053; 85025; 81025; 72125; 70450; 99284; 96374; 96375 ×4; 96361; J1200; J1100; J2765; J2405; J1885

== ENCOUNTER 2024-04-24 13:19 | Emergency (ER) | payer OTHER ==
--- NOTE | 2024-04-24 14:12 | ED ---
General Adult HPI - General Chief complaint: Altered Mental Status Stated complaint: AMS Time Seen by Provider: 04/24/24 13:55 Source: patient, family Mode of arrival: ambulatory Limitations: no limitations - History of Present Illness Initial comments: This is a 39-year-old female history of hypertension presents emergency room with her mother for concerns of altered mental status. Patient was evaluated emergency department on 04/18/2024 with concern of a headache where she underwent CT imaging of the brain without contrast that was unremarkable, and patient was discharged home in stable condition. Patient states that she followed up with her primary care provider 2 days after emergency department visit where there is concern that patient may have a muscle spasm in her neck where she was started on muscle relaxers. There is concern from the patient's mother that over the past 2 days patient has been acting differently from her baseline. Mom states that patient has been slow to answer questions and has not been taking some questions appropriately. Additionally, mother states that she asked the patient to plan both parents are slacks and patient replied that socks were in place however there is no sock on her right foot. Patient endorses a left-sided frontal headache that has been persistent over the past 6 days. She denies photophobia, phonophobia, nausea or vomiting. Patient states that she had an episode of blurry vision of the left eye on arrival to the emergency room however this is resolved. She denies history of DVT, PE, chest pain, shortness of breath, heart palpitations, weakness, peripheral edema. - Related Data Home Medications Medication Instructions Recorded Confirmed Losartan/Hydrochlorothiazide 1 tab PO DAILY 04/24/24 04/24/24 [Hyzaar 100-25 Tablet] methocarbamoL [Robaxin-750] 750 mg PO TID PRN 04/24/24 04/24/24 methylPREDNISolone [Medrol Dose See Taper PO DIRECTED 04/24/24 04/24/24 Pack] traMADol HCL 50 mg PO BID PRN 04/24/24 04/24/24 Allergies Allergy/AdvReac Type Severity Reaction Status Date / Time amoxicillin Allergy Rash/Hives Verified 04/24/24 16:57 Iodine and Iodide Containing Allergy Rash/Hives Verified 04/24/24 16:57 Produc Review of Systems ROS Statement: Those systems with pertinent positive or pertinent negative responses have been documented in the HPI. ROS Other: All systems not noted in ROS Statement are negative. Past Medical History Past Medical History: Hypertension, Pneumonia Additional Past Medical History / Comment(s): Hx Pneumonia many times, none in last 1 yr. History of Any Multi-Drug Resistant Organisms: None Reported Past Surgical History: Breast Surgery, Section Additional Past Surgical History / Comment(s): RT BREAST BIOPSY. Past Anesthesia/Blood Transfusion Reactions: No Reported Reaction Past Psychological History: ADD/ADHD Smoking Status: Vaper Past Alcohol Use History: Daily Past Drug Use History: None Reported - Past Family History Mother Family Medical History: No Reported History General Exam Limitations: no limitations General appearance: alert, in no apparent distress Eye exam: Present: normal appearance, PERRL, EOMI. Absent: scleral icterus, conjunctival injection, periorbital swelling Respiratory exam: Present: normal lung sounds bilaterally. Absent: respiratory distress, wheezes, rales, rhonchi, stridor Cardiovascular Exam: Present: regular rate, normal rhythm, normal heart sounds. Absent: systolic murmur, diastolic murmur, rubs, gallop, clicks GI/Abdominal exam: Present: soft, normal bowel sounds. Absent: distended, tenderness, guarding, rebound, rigid Extremities exam: Present: normal inspection, full ROM, normal capillary refill. Absent: tenderness, pedal edema, joint swelling, calf tenderness Neurological exam: Present: alert, oriented X3, CN II-XII intact Skin exam: Present: warm, dry, intact, normal color. Absent: rash Course Vital Signs 04/24/24 04/24/24 04/24/24 13:21 16:41 17:27 Temperature 98.2 F 98.4 F Pulse Rate 73 72 96 Respiratory 20 18 18 Rate Blood Pressure 153/93 126/85 145/93 O2 Sat by Pulse 99 98 96 Oximetry Medical Decision Making - Medical Decision Making Was pt. sent in by a medical professional or institution (, PA, TECHNICAL MARKETING ENGINEER, urgent care, hospital, or alf...) When possible be specific @ -No Did you speak to anyone other than the patient for history (EMS, parent, family, police, friend...)? What history was obtained from this source @ -Spoke to the patient's mother at bedside states that patient has been acting differently over the past few days such as not answering questions appropriately and has been slow to respond to questions Did you review nursing and triage notes (agree or disagree)? Why? @ -I reviewed and agree with nursing and triage notes Were old charts reviewed (outside hosp., previous admission, EMS record, old EKG, old radiological studies, urgent care reports/EKG's, alf records)? Report findings @ -Reviewed patient's emergency department visit note from 04/18/[address] imaging of the brain without contrast was unremarkable for acute intracranial abnormality. Differential Diagnosis (chest pain, altered mental status, abdominal pain women, abdominal pain men, vaginal bleeding, weakness, fever, dyspnea, syncope, headache, dizziness, GI bleed, back pain, seizure, CVA, palpatations, mental health, musculoskeletal)? @ -Differential Altered Mental Status: Hypoglycemia, DKA, hypercapnia, ETOH, overdose, CO poisoning, trauma, myxedema coma, HTN encephalopathy, infection, encephalitis, psychosis, intercranial hemorrhage, hepatic encephalopathy, meningitis, CVA, this is not meant to be an all-inclusive list EKG interpreted by me (3pts min.). @ -Completed at 1429 sinus rhythm with a ventricular rate of 73, IN interval 160, QRS 90, QTc 416. X-rays interpreted by me (1pt min.). @ -None done CT interpreted by me (1pt min.). @ -CT angiography of the brain and neck concerning for acute hemorrhagic infarct in the right parietal lobe with a questionable superior sagittal sinus thrombosis U/S interpreted by me (1pt. min.). @ -None done What testing was considered but not performed or refused? (CT, X-rays, U/S, labs)? Why? @ -None What meds were considered but not given or refused? Why? @ -None Did you discuss the management of the patient with other professionals (professionals i.e. DrJacob, PA, TECHNICAL MARKETING ENGINEER, lab, RT, psych nurse, social work administrator, polisher balance screwhead, teacher, industrial relations officer, returned case inspector)? Give summary @ -Has been accepted as an auto transfer to [facility] with ER physician Dr. Clayton and neurologist Dr. Iyer. Was smoking cessation discussed for >3mins.? @ -No Was critical care preformed (if so, how long)? @ -No Were there social determinants of health that impacted care today? How? (Homelessness, low income, unemployed, alcoholism, drug addiction, transportation, low edu. Level, literacy, decrease access to med. care, penitentiary, rehab)? @ -No Was there de-escalation of care discussed even if they declined (Discuss DNR or withdrawal of care, Hospice)? DNR status @ -No What co-morbidities impacted this encounter? (DM, HTN, Smoking, COPD, CAD, Cancer, CVA, ARF, Chemo, Hep., AIDS, mental health diagnosis, sleep apnea, morbid obesity)? @ -None Was patient admitted / discharged? Hospital course, mention meds given and route, prescriptions, significant lab abnormalities, going to OR and other pertinent info. @ -Transferred. This is a 39-year-old female presenting to the emergency department for complaint of changes in mental status. Patient is alert and oriented x 4. Neurological examination completed with no acute deficits, NIH score is 0. No signs of ataxia, aphasia, sensory loss, or pronator drift. patient is provided with IV fluids pending evaluation. Patient had a CT of the brain without contrast completed on 04/18/2024 that was unremarkable therefore patient will undergo CT angiography of the brain. Patient does have a listed iodine allergy he when asked he states that she had a skin reaction after appl charli topical iodine however patient is provided with allergic cocktail prior to CT angiography with contrast. Labs remarkable for elevated hemoglobin 19.8 and hematocrit of 57.0 which appears similar when patient was evaluated emergency department on 04/18/2024. Coagulation profile within normal limits, CMP unremarkable, urinalysis no signs of infection, salicylates, serum alcohol, acetaminophen undetected, urine toxicology screen is unremarkable. I was alerted by radiologist, Dr. Garcia, at the time of his interpretation with concern for interval development of small focal areas of hemorrhage in the right parietal lobe with marked surrounding edema resulting in mass effect on the right lateral ventricle with no shift of the midline structures of the left with findings consistent of acute hemorrhagic infarct. In addition to questionable superior sagittal sinus thrombosis. There is no occlusive disease within the arterial circulation of the head or neck. At this time I immediately discussed this case with my attending, Dr. Patel, who has personally reviewed the CT images well and does recommend transfer to [facility] for neurointervention. Patient has been accepted as an auto transfer except with attending ER physician Dr. Clayton and Neurologist Dr. Iyer. Patient's recheck of vitals are stable. Patient will be transferred to [facility]. Undiagnosed new problem with uncertain prognosis? @ -No Drug Therapy requiring intensive monitoring for toxicity (Heparin, Nitro, Insulin, Cardizem)? @ -No Were any procedures done? @ -No Diagnosis/symptom? @ -Parietal lobe hemorrhagic infarct Acute, or Chronic, or Acute on Chronic? @ -Acute Uncomplicated (without systemic symptoms) or Complicated (systemic symptoms)? @ -Complicated Side effects of treatment? @ -No Exacerbation, Progression, or Severe Exacerbation? @ -No Poses a threat to life or bodily function? How? (Chest pain, [place], [place], pneumonia, PE, COPD, DKA, ARF, appy, cholecystitis, CVA, Diverticulitis, Homicidal, Suicidal, threat to staff... and all critical care pts) @ -Yes, untreated hemorrhagic infarct can lead to severe neurological deficits. - Lab Data Result diagrams: 04/24/24 14:16 04/24/24 14:55 Lab Results 04/24/24 04/24/24 04/24/24 Range/Units 14:16 14:16 14:21 WBC 8.2 (3.8-10.6) k/uL RBC 5.78 H (3.80-5.40) m/uL Hgb 19.8 H* (11.4-16.0) gm/dL Hct 57.0 H (34.0-46.0) % MCV 98.7 (80.0-100.0) fL MCH 34.4 (25.0-35.0) pg MCHC 34.8 (31.0-37.0) g/dL RDW 13.2 (11.5-15.5) % Plt Count 138 L (150-450) k/uL MPV 8.9 Neutrophils % 85 % Lymphocytes % 8 % Monocytes % 6 % Eosinophils % 0 % Basophils % 1 % Neutrophils # 6.9 (1.3-7.7) k/uL Lymphocytes # 0.6 L (1.0-4.8) k/uL Monocytes # 0.5 (0-1.0) k/uL Eosinophils # 0.0 (0-0.7) k/uL Basophils # 0.1 (0-0.2) k/uL PT 11.8 (10.0-12.5) sec INR 1.1 (<1.2) APTT 23.3 (22.0-30.0) sec Sodium (137-145) mmol/L Potassium (3.5-5.1) mmol/L Chloride (98-107) mmol/L Carbon Dioxide (22-30) mmol/L Anion Gap mmol/L BUN (7-17) mg/dL Creatinine (0.52-1.04) mg/dL Est GFR (CKD-EPI)AfAm (>60 ml/min/1.73 sqM) Est GFR (CKD-EPI)NonAf (>60 ml/min/1.73 sqM) Glucose (74-99) mg/dL POC Glucose (mg/dL) 137 H (70-110) mg/dL POC Glu Chute Man ID Desean Gregorio Calcium (8.4-10.2) mg/dL Total Bilirubin (0.2-1.3) mg/dL AST (14-36) U/L ALT (4-34) U/L Alkaline Phosphatase (38-126) U/L Total Protein (6.3-8.2) g/dL Albumin (3.5-5.0) g/dL Urine Color Urine Appearance (Clear) Urine pH (5.0-8.0) Ur Specific [place] (1.001-1.035) Urine Protein (Negative) Urine Glucose (UA) (Negative) Urine Ketones (Negative) Urine Blood (Negative) Urine Nitrite (Negative) Urine Bilirubin (Negative) Urine Urobilinogen (<2.0) mg/dL Ur Leukocyte Esterase (Negative) Urine RBC (0-5) /hpf Urine WBC (0-5) /hpf Ur Squamous Epith Cells (0-4) /hpf Urine Bacteria (None) /hpf Urine Mucus (None) /hpf Urine Yeast (Budding) (None) /hpf Salicylates mg/dL Urine Opiates Screen (NotDetected) Ur Oxycodone Screen (NotDetected) Urine Methadone Screen (NotDetected) Acetaminophen ug/mL Ur Barbiturates Screen (NotDetected) U Tricyclic Antidepress (NotDetected) Ur Phencyclidine Scrn (NotDetected) Ur Amphetamines Screen (NotDetected) U Methamphetamines Scrn (NotDetected) U Benzodiazepines Scrn (NotDetected) Urine Cocaine Screen (NotDetected) U Marijuana (THC) Screen (NotDetected) Serum Alcohol mg/dL 04/24/24 04/24/24 Range/Units 14:55 14:57 WBC (3.8-10.6) k/uL RBC (3.80-5.40) m/uL Hgb (11.4-16.0) gm/dL Hct (34.0-46.0) % MCV (80.0-100.0) fL MCH (25.0-35.0) pg MCHC (31.0-37.0) g/dL RDW (11.5-15.5) % Plt Count (150-450) k/uL MPV Neutrophils % % Lymphocytes % % Monocytes % % Eosinophils % % Basophils % % Neutrophils # (1.3-7.7) k/uL Lymphocytes # (1.0-4.8) k/uL Monocytes # (0-1.0) k/uL Eosinophils # (0-0.7) k/uL Basophils # (0-0.2) k/uL PT (10.0-12.5) sec INR (<1.2) APTT (22.0-30.0) sec Sodium 135 L (137-145) mmol/L Potassium 3.5 (3.5-5.1) mmol/L Chloride 105 (98-107) mmol/L Carbon Dioxide 19 L (22-30) mmol/L Anion Gap 11 mmol/L BUN 16 (7-17) mg/dL Creatinine 0.53 (0.52-1.04) mg/dL Est GFR (CKD-EPI)AfAm >90 (>60 ml/min/1.73 sqM) Est GFR (CKD-EPI)NonAf >90 (>60 ml/min/1.73 sqM) Glucose 110 H (74-99) mg/dL POC Glucose (mg/dL) (70-110) mg/dL POC Glu Chute Man ID Calcium 7.5 L (8.4-10.2) mg/dL Total Bilirubin 1.5 H (0.2-1.3) mg/dL AST 33 (14-36) U/L ALT 17 (4-34) U/L Alkaline Phosphatase 50 (38-126) U/L Total Protein 6.2 L (6.3-8.2) g/dL Albumin 3.2 L (3.5-5.0) g/dL Urine Color Yellow Urine Appearance Turbid H (Clear) Urine pH 7.0 (5.0-8.0) Ur Specific [place] 1.018 (1.001-1.035) Urine Protein Trace H (Negative) Urine Glucose (UA) Negative (Negative) Urine Ketones 1+ H (Negative) Urine Blood Negative (Negative) Urine Nitrite Negative (Negative) Urine Bilirubin Negative (Negative) Urine Urobilinogen 3.0 (<2.0) mg/dL Ur Leukocyte Esterase Moderate H (Negative) Urine RBC 4 (0-5) /hpf Urine WBC 11 H (0-5) /hpf Ur Squamous Epith Cells 1 (0-4) /hpf Urine Bacteria Occasional H (None) /hpf Urine Mucus Few H (None) /hpf Urine Yeast (Budding) Many H (None) /hpf Salicylates <1.0 mg/dL Urine Opiates Screen Not Detected (NotDetected) Ur Oxycodone Screen Not Detected (NotDetected) Urine Methadone Screen Not Detected (NotDetected) Acetaminophen <10.0 ug/mL Ur Barbiturates Screen Not Detected (NotDetected) U Tricyclic Antidepress Not Detected (NotDetected) Ur Phencyclidine Scrn Not Detected (NotDetected) Ur Amphetamines Screen Not Detected (NotDetected) U Methamphetamines Scrn Not Detected (NotDetected) U Benzodiazepines Scrn Not Detected (NotDetected) Urine Cocaine Screen Not Detected (NotDetected) U Marijuana (THC) Screen Not Detected (NotDetected) Serum Alcohol <10 mg/dL Disposition Clinical Impression: Intracerebral hemorrhage Disposition: OTHER INSTITUTION NOT DEFINED Condition: Serious Referrals: Terrence Momin MD [Primary Care Provider] - 1-2 days - Out of Hospital Transfer - Req. Specs Out of Hospital Transfer - Requested Specifics: Other Emergency Center ([facility])
[2024-04-24 14:22] LABS: Glucose,Whole Blood 137 mg/dL (70-110)
[2024-04-24] MEDS: diphenhydrAMINE 50 MG/ML 1 ML VIAL IVP STA (14:36)
[2024-04-24] MEDS: methylPREDNISolone SOD SUCCI 125 MG/2 ML VIAL IV STA (14:36)
[2024-04-24] MEDS: SODIUM CHLORIDE 0.9% 1,000 ML IV ONE (14:37)
[2024-04-24] MEDS: FAMOTIDINE 20 MG/2 ML VIAL IV STA (14:37)
[2024-04-24 14:54] LABS: INR 1.1 (<1.2); Partial Thromboplastin Time 23.3 sec (22.0-30.0); Prothrombin Time 11.8 sec (10.0-12.5)
[2024-04-24 15:08] LABS: Basophils # (A) 0.1 k/uL (0-0.2); Basophils % (A) 1 %; Eosinophils % (A) 0 %; Lymphocytes # (A) 0.6 k/uL (1.0-4.8); Lymphocytes % (A) 8 %; MCH 34.4 pg (25.0-35.0); MCHC 34.8 g/dL (31.0-37.0); MCV 98.7 fL (80.0-100.0); Mean Platelet Volume 8.9; Monocytes # (A) 0.5 k/uL (0-1.0); Monocytes % (A) 6 %; Neutrophils # (A) 6.9 k/uL (1.3-7.7); Neutrophils % (A) 85 %; Platelet Count 138 k/uL (150-450); RBC 5.78 m/uL (3.80-5.40); RDW 13.2 % (11.5-15.5); WBC 8.2 k/uL (3.8-10.6)
[2024-04-24 15:16] LABS: HGB 19.8 gm/dL (11.4-16.0)
[2024-04-24 15:20] LABS: ALT 17 U/L (4-34); AST 33 U/L (14-36); Acetaminophen <10.0 ug/mL; African American GFR (CKD) >90 (>60 ml/min/1.73 sqM); Alcohol <10 mg/dL; Anion Gap 11 mmol/L; Blood Urea Nitrogen 16 mg/dL (7-17); Calcium 7.5 mg/dL (8.4-10.2); Carbon Dioxide 19 mmol/L (22-30); Chloride 105 mmol/L (98-107); Glucose 110 mg/dL (74-99); Non-African American GFR(CKD) >90 (>60 ml/min/1.73 sqM); Salicylate <1.0 mg/dL; Sodium 135 mmol/L (137-145); Total Bilirubin 1.5 mg/dL (0.2-1.3)
[2024-04-24 15:23] LABS: Amphetamine Screen,Urine Not Detected (NotDetected); Appearance,Urine Turbid (Clear); Bacteria,Urine Occasional /hpf; Barbiturate Screen,Urine Not Detected (NotDetected); Benzodiazepines Screen,Urine Not Detected (NotDetected); Bilirubin,Urine Negative (Negative); Blood,Urine Negative (Negative); Budding Yeast,Urine Many /hpf; Cocaine Screen,Urine Not Detected (NotDetected); Color,Urine Yellow; Glucose,Urine (UA) Negative (Negative); Ketones,Urine 1+ (Negative); Leukocyte Esterase,Urine Moderate (Negative); Methadone Screen, Urine Not Detected (NotDetected); Mucus,Urine Few /hpf; Nitrite,Urine Negative (Negative); Opiate Screen,Urine Not Detected (NotDetected); Oxycodone Screen, Urine Not Detected (NotDetected); Phencyclidine Screen,Urine Not Detected (NotDetected); Protein,Urine Trace (Negative); RBC,Urine 4 /hpf (0-5); Specific Gravity,Urine 1.018 (1.001-1.035); Squamous Epithelial Cell,Urine 1 /hpf (0-4); Tricyclic Antidepressant,Urine Not Detected (NotDetected); Urn Cannabinoid Scrn Not Detected (NotDetected); WBC,Urine 11 /hpf (0-5)
[2024-04-24 15:28] LABS: Albumin 3.2 g/dL (3.5-5.0); Alkaline Phosphatase 50 U/L (38-126); Potassium 3.5 mmol/L (3.5-5.1); Total Protein 6.2 g/dL (6.3-8.2)
--- NOTE | 2024-04-24 16:17 | CT ---
EXAMINATION TYPE: CT angio head neck DATE OF EXAM: 04/24/2024 COMPARISON: CT brain and C-spine dated 04/18/2024 CLINICAL INDICATION: Female, 39 years old with history of peristent L sided HOPE, - CT w/out last week; PHH, headache TECHNIQUE: CTA scan of the head and neck is performed with IV Contrast, patient injected with 65ml m L of Isovue 370, axial images are obtained, coronal and sagittal reformatted images are reviewed. 3D reconstructed images are created on an independent workstation and reviewed. CT DLP: 1464.[address] CTDI: mGy Automated exposure control for dose reduction was used. NASCET criteria was used in interpretation of this exam? FINDINGS: CT HEAD: There is been interval development of 2 small focal areas of increased density in the right parietal lobe with marked surrounding edema. There is significant mass effect on the on the right lateral vent ricle but no significant shift of midline structures. Findings suspicious for a acute hemorrhagic inf arct. In addition there is questionable thickening/expansion of the superior sagittal sinus raising t he question of superior sagittal sinus thrombosis. Posterior fossa is grossly normal. Intraorbital contents appear normal symmetric. CTA head and neck: The brachiocephalic origins are widely patent without significant stenosis. There is no significant stenosis of the common or internal carotid arteries within the neck. The vert ebral arteries are widely patent. Intracranially, there is no occlusive disease, sizable aneurysm or vascular malformation. IMPRESSION: 1. Interval development of small focal areas of hemorrhage in the right parietal lobe with marked osmar rounding edema resulting in mass effect on the right lateral ventricle but no shift of the midline st ructures to the left. Findings are consistent with acute hemorrhagic infarct. 2. Questionable superior sagittal sinus thrombosis. 3. No occlusive disease within the arterial circulation of the head or neck. The ER was notified of these important findings by phone on 04/24/2024 and 4:11 PM. [facility], , 04/24/2024 4:15 PM
[2024-04-24 16:42] VITALS: RESP 18; TEMP 98.4
[2024-04-24 17:35] VITALS: BP 145/93; PULSE 96
== END 2024-04-24 17:47 | disposition other institution (70) ==
LOC: EC 13:19
DX: I61.9 Nontraumatic intracerebral hemorrhage, unspecified (principal); I10 Essential (primary) hypertension; F17.290 Nicotine dependence, other tobacco product, uncomplicated; Z88.0 Allergy status to penicillin; Z91.041 Radiographic dye allergy status
CPT/HCPCS: 36415; 93005; 80053; 85025; 85610; 85730; 81001; 80306; 80143; 80320; 80179; 70496; 70498; 99285; 96374; 96375; 96361; J1200; J3490; Q9967; J2919